=== PATIENT | male | born 1955 | race Caucasian/White ===

== ENCOUNTER 2017-03-28 05:39 | Day surgery (SDC) | payer BC ==
[~2017-03-28 05:39] MED LIST: ASPIRIN EC81 MG PO; INVOKAMET 50-11 EACH PO; LIPITOR40 M1 PO; LORTAB 5/500 TA1 TAB; LOTREL 5-20 MG1 EACH PO; VICODIN 5/500 T1 TAB PO; ZOFRAN ODT8 MG/TAB; ZOFRAN ODT8 MG/TAB PO; ZOFRAN4 MG
[2017-03-28 06:31] LABS: ANION GAP 12 mmol/L (0-20); BLOOD UREA NITROGEN 13 mg/dl (6-24); CALCIUM 8.9 mg/dl (8.5-10.5); CARBON DIOXIDE-VENOUS 25 mmol/L (22-32); CHLORIDE 101 mmol/l (96-110); CREATININE 1.17 mg/dl (0.60-1.30); GLUCOSE 117 mg/dL (70-110); POTASSIUM 4.2 mmol/L (3.7-5.1); SODIUM 134 mmol/L (135-145); eGFR VALUE FOR BLACK 77 mL/Min
== END 2017-03-28 12:15 ==
LOC: SHSB 05:39 → ORE 07:20 → PACU 09:12 → SHSB 09:35
PROVIDERS: Anesthesiology
PROC: 0T768DZ Dilation of Right Ureter with Intraluminal Device, Via Natural or Artificial Opening Endoscopic (ICD-10-PCS; principal; 2017-03-28)
PROC: 0TF4XZZ Fragmentation in Left Kidney Pelvis, External Approach (ICD-10-PCS; 2017-03-28)
PROC: 0TF3XZZ Fragmentation in Right Kidney Pelvis, External Approach (ICD-10-PCS; 2017-03-28)
DX: N20.0 Calculus of kidney (principal); I10 Essential (primary) hypertension; E66.9 Obesity, unspecified; E11.9 Type 2 diabetes mellitus without complications; Z79.899 Other long term (current) drug therapy; Z87.891 Personal history of nicotine dependence
CPT/HCPCS: C1769; C2617; J1956